=== PATIENT | male | born 1950 | race Caucasian/White ===

== ENCOUNTER → 2024-08-25 | Outpatient (CLI) | payer MEDICARE, SELFPAY ==
[2024-08-25 09:44] LABS: Basophils % (Auto) 1 % (0-2.5); Eosinophils # (Auto) 0.1 Thou/mm3 (0.0-0.5); Eosinophils % (Auto) 2 % (0-10); Hematocrit 41.7 % (41.0-53.0); Hemoglobin 13.8 g/dL (13.5-16.0); Immature Granulocytes % (Auto) 0 % (0-0); Immature Granulocytes Auto 0.01 Thou/mm3 (0.00-0.00); Lymphocytes # (Auto) 1.4 Thou/mm3 (1.0-4.8); Lymphocytes % (Auto) 32 % (10-50); Mean Corpuscular HGB Conc 33.1 g/dl (31.0-37.0); Mean Corpuscular Hemoglobin 30.3 pg (25.0-35.0); Mean Corpuscular Volume 91 fL (80-100); Monocytes # (Auto) 0.4 Thou/mm3 (0.0-0.8); Monocytes % (Auto) 8 % (0-12); Neutrophils # (Auto) 2.4 Thou/mm3 (1.8-7.7); Neutrophils % (Auto) 57 % (37-80); Nucleated Red Blood Cell % 0 /100 WBC (0); Platelet Count 194 Thou/mm3 (140-440); RDW Standard Deviation 40.7 fL (35.1-43.9); Red Blood Count 4.56 Miln/mm3 (4.50-5.90); White Blood Count 4.3 Thou/mm3 (3.8-10.6)
[2024-08-25 09:55] LABS: Prostate Specific Antigen < 0.10 ng/mL (0-4.00)
[2024-08-25 10:00] LABS: Alanine Aminotransferase 38 U/L (10-49); Albumin, Serum 4.8 gm/dL (3.4-4.8); Albumin/Globulin Ratio 2.4 (1.2-2.2); Alkaline Phosphatase 107 U/L (46-116); Anion Gap 8 (7-16); Aspartate Amino Transferase 29 U/L (0-34); BUN/Creatinine Ratio 19 Ratio (12-20); Bilirubin,Total 1.1 mg/dL (0.3-1.2); Blood Urea Nitrogen 17 mg/dL (9-23); Calcium 10.2 mg/dL (8.3-10.6); Calcium (Corrected) 10.2 mg/dL (8.5-10.1); Carbon Dioxide 25.5 mMol/L (20.0-31.0); Chloride 106 mMol/L (98-107); Creatinine (Component) 0.9 mg/dL (0.6-1.3); Glucose 97 mg/dL (74-106); Osmolality,Calculated 279 (275-295); Potassium 4.2 mMol/L (3.4-5.1); Sodium 139 mMol/L (136-145); Total Protein 6.8 gm/dL (5.7-8.2); eGFR > 60 See Note
== END | disposition home or self-care (01) ==
LOC: COPL 08:16
PROVIDERS: PCP Internal Medicine; Referring Provider Urology; Visit Provider Urology
DX: N40.1 Benign prostatic hyperplasia with lower urinary tract symptoms (principal); N32.81 Overactive bladder; C61 Malignant neoplasm of prostate
CPT/HCPCS: 36415; 80053; 84153; 85025

== ENCOUNTER 2024-08-29 06:57 | Emergency (ER) | payer MEDICARE, SELFPAY ==
[2024-08-29 06:58] VITALS: BMI 32.1
[2024-08-29 07:10] VITALS: BP 120/75; PULSE 64; RESP 19; TEMP 36.4; O2SAT 100
--- NOTE | 2024-08-29 07:12 | EKG_ITS ---
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
--- NOTE | 2024-08-29 07:26 | XR_ITS ---
Examination: PA lateral chest 2 views Technique: Upright PA lateral chest 2 views Exam date and time: August 20, 2024 at 0733 hrs. Indications: Onset chest pain today, history myocardial infarction 3 years ago Findings: Normal heart size Lungs are clear. Moderate thoracic spondylosis Impression: No active disease
--- NOTE | 2024-08-29 07:26 | PD.EDRME ---
Rapid Medical Screening Exam RME Arrival date/time: 08/29/24 06:57 Chief Complaint: Chest Pain Time Seen by Provider: 08/29/24 07:03 Vital signs: Vital Signs Temperature 97.6 F 08/29/24 07:10 Pulse Rate 64 08/29/24 07:10 Respiratory Rate 19 08/29/24 07:10 Blood Pressure 120/75 08/29/24 07:10 Pulse Oximetry (%) 100 08/29/24 07:10 Oxygen Delivery Method Room Air 08/29/24 07:10 Vital signs reviewed by provider: Yes RME Narrative: 73-year-old male past medical history of CAD (HI x 3 years ago) presents for evaluation of intermittent, substernal, sharp chest pain x 45 minutes.
[2024-08-29 08:15] LABS: Collection Type, Urine Clean Catch
--- NOTE | 2024-08-29 08:25 | EDNOTE_ITS ---
ED Chest Pain RME/HPI General Chief Complaint: Chest Pain Stated Complaint: CHEST PAIN X 30MINS Time Seen by Provider: 08/29/24 07:03 Arrival date/time: 08/29/24 06:57 Limitations: no limitations RME / HPI RME / HPI narrative: 73-year-old male past medical history of CAD (ID x 3 years ago) presents for evaluation of intermittent, substernal, sharp chest pain x [address] 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 States pain is located most to the left side and points to spot that is about the size of a finger nail on the left sternal border of chest. Described as sharp that is waxing and waning. No other associated symptoms reported. Denies fevers, chills, cough, shortness of breath, sweats, abdominal pain, n/v/d, or urinary symptoms. Related Data Home Medications ?Medication ?Instructions ?Recorded ?Confirmed clopidogrel 75 mg tablet (Plavix) 75 mg PO QDAY 09/19/18 09/19/18 finasteride 5 mg tablet 5 mg PO QDAY 09/19/18 09/19/18 lamotrigine 200 mg tablet 200 mg PO BID 09/19/18 09/19/18 levetiracetam 500 mg tablet 500 mg PO BID 09/19/18 09/19/18 Previous Rx's ?Medication ?Instructions ?Recorded hydrocodone 5 mg-acetaminophen 325 1 tab PO Q6H PRN pain #12 tabs 09/10/21 mg tablet meloxicam 15 mg tablet 15 mg PO QDAY #30 tabs 09/10/21 Allergies Allergy/AdvReac Type Severity Reaction Status Date / Time No Known Allergies Allergy Verified 02/14/22 15:59 Review of Systems Review of Systems Systems Reviewed: All systems reviewed, normal except as documented Past Medical History Past Medical History NEUROLOGIC: Positive Neurological Disorders and Seizures (LAST SEIZURE 09/19/18) CARDIAC: Positive Myocardial Infarction RESPIRATORY: Positive Asthma (uses cpap at night) GENITOURINARY: Positive Genitourinary Disorders and Benign Prostatic Hyperplasia PSYCHO/SOCIAL: Positive Depression OTHER HISTORY: Positive Falls (SEIZURE), Chicken Pox, Measles and Mumps Family History FAMILY HISTORY: Positive Family Psychiatric Problems (SISTER/DEPRESSION) Surgical History SURGICAL: Positive Coronary Stent Social History SMOKING STATUS: Never smoker SUBSTANCE USE: does not use ED Exam General Limitations: Present no limitations General appearance: Present alert and in no apparent distress Head Head exam: Present atraumatic, normocephalic and normal inspection Eye Eye exam: Present normal appearance, PERRL and EOMI ENT ENT exam: Present normal exam, normal oropharynx and mucous membranes moist Neck Neck exam: Present normal inspection, full ROM and trachea midline Chest Chest inspection: Present symmetric chest wall rise and tenderness (Pain is reproducible on exam ) Respiratory Respiratory exam: Present normal lung sounds bilaterally Cardiovascular Cardiovascular exam: Present regular rate, normal rhythm and normal heart sounds Abdominal Exam Abdominal exam: Present soft and normal bowel sounds Extremities Exam Extremities exam: Present normal inspection and full ROM Back Exam Back exam: Present normal inspection and full ROM Neurological Exam Neurological exam: Present alert, oriented X3 and CN II-XII intact Psychiatric Psychiatric exam: Present normal affect and normal mood Skin Skin exam: Present warm, dry, intact and normal color Course Course Course Narrative: chest xray ordered to help determine etiology of chest pain. Quality Measures none Orders Category Date Time Status EKG (ED ONLY) *Do not use* NOW Care 08/29/24 07:12 Completed EKG (ED ONLY) *Do not use* NOW Care 08/29/24 07:26 Completed EKG (ED Only) Stat Exams 08/29/24 07:12 Draft EKG (ED Only) Stat Exams 08/29/24 07:26 Ordered XR chest 2V Stat Exams 08/29/24 07:26 Completed B-Type Natriuretic Peptide Stat Lab 08/29/24 07:58 Completed CBC Stat Lab 08/29/24 07:58 Completed Comprehensive Metabolic Panel Stat Lab 08/29/24 07:58 Completed Drug Screen,Urine Stat Lab 08/29/24 07:40 Completed Magnesium Stat Lab 08/29/24 07:58 Completed Partial Thromboplastin Time Stat Lab 08/29/24 07:58 Completed Prothrombin Time with INR Stat Lab 08/29/24 07:58 Completed Troponin I Stat Lab 08/29/24 07:58 Completed Urinalysis Stat Lab 08/29/24 07:40 Completed Reevaluation(s) Reevaluation #1: Patient remains clinically stable throughout the emergency department visit. We reviewed all the results, analysis, and treatment plans. Patient is amenable to discharge. Strict return precautions were outlined. Patient was discharged in stable condition. Time: 08:53 Vital Signs Vital signs: Vital Signs Temperature 97.6 F 08/29/24 07:10 Pulse Rate 64 08/29/24 07:10 Respiratory Rate 19 08/29/24 07:10 Blood Pressure 120/75 08/29/24 07:10 Pulse Oximetry (%) 100 08/29/24 07:10 Oxygen Delivery Method Room Air 08/29/24 07:10 Pulse ox is 100% on room air which is adequate. Chest Pain MDM Narrative MDM Narrative:: Susu Patton am scribing for and in the presence of Dr. Ortez. Patient data External records reviewed:: [facility] previous records (I reviewed ED visit on 02/15/2022 ) Clinical information provided by:: patient Social determinants that could affect healthcare access:: none Patient has the following chronic illnesses:: ID, CAD s/p stent How is presenting disease/condition affected by chronic disease/condition?: exacerbated by Evaluation data The following diagnostics were reviewed and interpreted by me:: lab results, radiology exam(s) and EKG tracing(s) (Sinus rhythm, rate 64, no acute ST or T- wave changes, no STEMI. ) Lab and/or radiology exams considered but not ordered:: None Interpretation Summary: Ordering Physician: Sina Cruz PA-C Date of Service: 08/29/24 Procedure(s): XR chest 2V Accession Number(s): [id number] cc: Sina Cruz PA-C; Keith Ramsey MD; Stephen Woo MD~ Examination: PA lateral chest 2 views Technique: Upright PA lateral chest 2 views Exam date and time: August 20, 2024 at 0733 hrs. Indications: Onset chest pain today, history myocardial infarction 3 years ago Findings: Normal heart size Lungs are clear. Moderate thoracic spondylosis Impression: No active disease Dictated By: Stephen Woo MD Signed By: <Electronically signed by Stephen Woo MD in OV> 08/29/24 1016 Medications / Prescriptions Medications or Prescriptions considered but not ordered:: None Medication administrations:: None Consultations Consultation(s) initiated? (list below): No Diagnosis Chest Pain Differential Diagnosis: stable angina, atypical chest pain, st elevation myocardial infarction, costochondritis and chest pain (Musculoskeletal pain ) Most likely diagnosis given after review of the tests above:: Costochondritis Admission Indicated Admission indicated?: not indicated Admission Request Was there a request for admission?: No Disposition Plan Disposition Plan: Discharge Discharge Attestation Discharge Attestation: The patient and all family members were given an opportunity to ask questions and understood the discharge instructions. Discharge instructions specifically effects, indications for sooner follow up or return to the emergency department, and the expected course of current diagnosis. Patient condition: Stable Discharge Plan Plan Patient Disposition: HOME (Self Care) Patient condition on transfer: Stable Prescriptions/Referrals Prescriptions/Med Rec: No Action hydrocodone-acetaminophen 5-325 mg tablet 1 tab PO Q6H MDD 4 PRN (Reason: pain) Qty: 12 0RF meloxicam 15 mg tablet 15 mg PO QDAY Qty: 30 0RF lamotrigine 200 mg Tablet 200 mg PO BID levetiracetam 500 mg Tablet 500 mg PO BID clopidogrel [Plavix] 75 mg Tablet 75 mg PO QDAY finasteride 5 mg Tablet 5 mg PO QDAY Referrals: Keith Ramsey MD [Primary Care Provider] - In 1 week Problem List Clinical Impression: Costalchondritis Patient/Caregiver Discharge Instructions Discharge Activity: activity as tolerated Education Materials: ED Chest Wall Pain, Costochondritis Print Language: Samoan Stand Alone Forms: Zoë Award Info., Patient Portal Info Letter
[2024-08-29 08:26] LABS: Basophils % (Auto) 1 % (0-2.5); Eosinophils # (Auto) 0.1 Thou/mm3 (0.0-0.5); Eosinophils % (Auto) 2 % (0-10); Hematocrit 40.3 % (41.0-53.0); Hemoglobin 13.4 g/dL (13.5-16.0); Immature Granulocytes % (Auto) 0 % (0-0); Immature Granulocytes Auto 0.01 Thou/mm3 (0.00-0.00); Lymphocytes # (Auto) 1.6 Thou/mm3 (1.0-4.8); Lymphocytes % (Auto) 36 % (10-50); Mean Corpuscular HGB Conc 33.3 g/dl (31.0-37.0); Mean Corpuscular Hemoglobin 30.7 pg (25.0-35.0); Mean Corpuscular Volume 92 fL (80-100); Monocytes # (Auto) 0.4 Thou/mm3 (0.0-0.8); Monocytes % (Auto) 8 % (0-12); Neutrophils # (Auto) 2.3 Thou/mm3 (1.8-7.7); Neutrophils % (Auto) 53 % (37-80); Nucleated Red Blood Cell % 0 /100 WBC (0); Platelet Count 195 Thou/mm3 (140-440); RDW Standard Deviation 41.1 fL (35.1-43.9); Red Blood Count 4.36 Miln/mm3 (4.50-5.90); White Blood Count 4.4 Thou/mm3 (3.8-10.6)
[2024-08-29 08:29] LABS: Amphetamine/Methamp Scrn,U Negative (Negative); Barbiturate Screen,Urine Negative (Negative); Benzodiazepines Screen,Urine Negative (Negative); Benzoylecgonine Screen, Ur Negative (Negative); Fentanyl Screen,Urine Negative (Negative); Opiate Screen,Urine Negative (Negative); THC Screen,Urine Negative (Negative)
[2024-08-29 08:34] LABS: Partial Thromboplastin Time 25.5 Seconds (22.0-36.0); Prothrombin Time 11.3 Seconds (9.0-12.2)
[2024-08-29 08:36] LABS: B-Type Natriuretic Peptide 51 pg/mL (0-100)
[2024-08-29 08:44] LABS: Alanine Aminotransferase 39 U/L (10-49); Albumin, Serum 4.4 gm/dL (3.4-4.8); Albumin/Globulin Ratio 1.8 (1.2-2.2); Alkaline Phosphatase 88 U/L (46-116); Anion Gap 7 (7-16); Aspartate Amino Transferase 43 U/L (0-34); BUN/Creatinine Ratio 15 Ratio (12-20); Bilirubin,Total 0.6 mg/dL (0.3-1.2); Blood Urea Nitrogen 12 mg/dL (9-23); Carbon Dioxide 25.5 mMol/L (20.0-31.0); Chloride 105 mMol/L (98-107); Creatinine (Component) 0.8 mg/dL (0.6-1.3); Estimated Creatinine Clearance 111.8 mL/min (>60); Globulin 2.5 gm/dL (2.3-3.5); Glucose 93 mg/dL (74-106); Magnesium 2.2 mg/dL (1.6-2.6); Osmolality,Calculated 273 (275-295); Potassium 4.6 mMol/L (3.4-5.1); Sodium 137 mMol/L (136-145); Total Protein 6.9 gm/dL (5.7-8.2); Troponin I < 0.020 ng/mL (0.0-0.045); eGFR > 60 See Note
[2024-08-29 08:46] LABS: Bilirubin,Urine Negative (Negative); Blood,Urine Negative (Negative); Clarity,Urine Clear (Clear/Hazy); Color,Urine Lt-Yellow (Lt Yel-Yel); Glucose, Urine Negative (Negative); Ketones,Urine Negative (Negative); Leukocyte Esterase,Urine Negative (Negative); Nitrite,Urine Negative (Negative); PH,Urine 7.5 (5.0-7.0); Protein,Urine Negative (Neg - Trace); RBC,Urine 1 /hpf (0-3); Specific Gravity,Urine 1.009 (1.001-1.035); Squamous Epithelial Cell,Urine < 1 /hpf (0-5); Urobilinogen,Urine Negative mg/dL (0.0-1.0); WBC,Urine 1 /hpf (0-5)
--- NOTE | 2024-08-29 08:50 | PC.NURSE ---
PT CAME IN WITH C/O PAIN TO LEFT SIDE CHEST. PT STATES PAIN IS NON RADIATING AND FEELS LIKE A SPASM. NO N/V REPORTED. EKG WAS DONE ON ARRIVAL AND SHOWN TO ER DOCTOR. PT IS NORMAL SINUS RHYTHM ON NURSE TRANSPLANT .
[2024-08-29 08:55] VITALS: BP 124/70; PULSE 58; RESP 20; TEMP 36.4; O2SAT 100
== END 2024-08-29 09:09 | disposition home or self-care (01) ==
PROVIDERS: Physician Assistant; Emergency Provider Emergency Medicine; PCP Internal Medicine
DX: M94.0 Chondrocostal junction syndrome [Tietze] (principal); I45.10 Unspecified right bundle-branch block; I25.2 Old myocardial infarction; I25.10 Atherosclerotic heart disease of native coronary artery without angina pectoris; Z95.5 Presence of coronary angioplasty implant and graft
CPT/HCPCS: 36415; 71046; 80053; 80307; 81001; 83735; 83880; 84484; 85025; 85610; 85730; 93005; 99283

== ENCOUNTER → 2025-03-31 | Outpatient (CLI) | payer MEDICARE, SELFPAY ==
[2025-03-31 11:58] LABS: Basophils # (Auto) 0.0 Thou/mm3 (0.0-0.2); Basophils % (Auto) 1 % (0-2.5); Eosinophils # (Auto) 0.1 Thou/mm3 (0.0-0.5); Eosinophils % (Auto) 1 % (0-10); Hematocrit 39.6 % (41.0-53.0); Hemoglobin 13.4 g/dL (13.5-16.0); Immature Granulocytes Auto 0.01 Thou/mm3 (0.00-0.00); Lymphocytes # (Auto) 1.9 Thou/mm3 (1.0-4.8); Lymphocytes % (Auto) 34 % (10-50); Mean Corpuscular HGB Conc 33.8 g/dl (31.0-37.0); Mean Corpuscular Hemoglobin 30.0 pg (25.0-35.0); Mean Corpuscular Volume 89 fL (80-100); Monocytes # (Auto) 0.5 Thou/mm3 (0.0-0.8); Monocytes % (Auto) 9 % (0-12); Neutrophils # (Auto) 3.0 Thou/mm3 (1.8-7.7); Neutrophils % (Auto) 55 % (37-80); Nucleated Red Blood Cell # 0.00 Thou/mm3 (0.00-0.00); Nucleated Red Blood Cell % 0 /100 WBC (0); Platelet Count 175 Thou/mm3 (140-440); RDW Standard Deviation 42.6 fL (35.1-43.9); Red Blood Count 4.47 Miln/mm3 (4.50-5.90); White Blood Count 5.4 Thou/mm3 (3.8-10.6)
[2025-03-31 12:08] LABS: Prostate Specific Antigen < 0.10 ng/mL (0-4.00)
[2025-03-31 12:12] LABS: Alanine Aminotransferase 31 U/L (10-49); Albumin, Serum 4.3 gm/dL (3.4-4.8); Albumin/Globulin Ratio 2.0 (1.2-2.2); Alkaline Phosphatase 86 U/L (46-116); Anion Gap 7 (7-16); Aspartate Amino Transferase 36 U/L (0-34); BUN/Creatinine Ratio 16 Ratio (12-20); Bilirubin,Total 0.8 mg/dL (0.3-1.2); Blood Urea Nitrogen 14 mg/dL (9-23); Calcium 9.4 mg/dL (8.3-10.6); Calcium (Corrected) 9.4 mg/dL (8.5-10.1); Carbon Dioxide 24.6 mMol/L (20.0-31.0); Chloride 108 mMol/L (98-107); Creatinine (Component) 0.9 mg/dL (0.6-1.3); Globulin 2.1 gm/dL (2.3-3.5); Glucose 89 mg/dL (74-106); Osmolality,Calculated 278 (275-295); Potassium 4.1 mMol/L (3.4-5.1); Sodium 140 mMol/L (136-145); Total Protein 6.4 gm/dL (5.7-8.2); eGFR > 60 See Note
[2025-04-07 06:41] LABS: Testosterone,Total* 81 ng/dL (250-1100)
== END | disposition home or self-care (01) ==
LOC: COPL 10:55
PROVIDERS: PCP Internal Medicine; Referring Provider Urology; Visit Provider Urology
DX: N40.1 Benign prostatic hyperplasia with lower urinary tract symptoms (principal); R97.20 Elevated prostate specific antigen [PSA]
CPT/HCPCS: 36415; 80053; 84153; 84403; 85025

== ENCOUNTER → 2025-07-27 | Outpatient (CLI) | payer MEDICARE, SELFPAY ==
[2025-07-27 07:15] LABS: Misc Send Out* See Sep Rpt
[2025-07-27 09:13] LABS: Basophils # (Auto) 0.0 Thou/mm3 (0.0-0.2); Basophils % (Auto) 1 % (0-2.5); Eosinophils # (Auto) 0.1 Thou/mm3 (0.0-0.5); Eosinophils % (Auto) 2 % (0-10); Hematocrit 36.8 % (41.0-53.0); Hemoglobin 12.0 g/dL (13.5-16.0); Immature Granulocytes Auto 0.02 Thou/mm3 (0.00-0.00); Lymphocytes # (Auto) 1.5 Thou/mm3 (1.0-4.8); Lymphocytes % (Auto) 30 % (10-50); Mean Corpuscular HGB Conc 32.6 g/dl (31.0-37.0); Mean Corpuscular Hemoglobin 30.5 pg (25.0-35.0); Mean Corpuscular Volume 93 fL (80-100); Monocytes # (Auto) 0.4 Thou/mm3 (0.0-0.8); Monocytes % (Auto) 8 % (0-12); Neutrophils # (Auto) 2.9 Thou/mm3 (1.8-7.7); Neutrophils % (Auto) 59 % (37-80); Nucleated Red Blood Cell # 0.00 Thou/mm3 (0.00-0.00); Nucleated Red Blood Cell % 0 /100 WBC (0); Platelet Count 190 Thou/mm3 (140-440); RDW Standard Deviation 44.8 fL (35.1-43.9); Red Blood Count 3.94 Miln/mm3 (4.50-5.90); White Blood Count 5.0 Thou/mm3 (3.8-10.6)
[2025-07-27 09:18] LABS: Prostate Specific Antigen < 0.10 ng/mL (0-4.00)
[2025-07-27 09:24] LABS: Vitamin B12 679 pg/mL (211-911); Vitamin D 25 Hydroxy Total 29.9 ng/mL (7.3-40.2)
[2025-07-27 09:25] LABS: Alanine Aminotransferase 38 U/L (10-49); Albumin, Serum 4.1 gm/dL (3.4-4.8); Albumin/Globulin Ratio 2.7 (1.2-2.2); Alkaline Phosphatase 65 U/L (46-116); Anion Gap 10 (7-16); Aspartate Amino Transferase 31 U/L (0-34); BUN/Creatinine Ratio 20 Ratio (12-20); Bilirubin,Total 0.5 mg/dL (0.3-1.2); Blood Urea Nitrogen 16 mg/dL (9-23); Calcium 8.7 mg/dL (8.3-10.6); Calcium (Corrected) 8.7 mg/dL (8.5-10.1); Carbon Dioxide 24.0 mMol/L (20.0-31.0); Cardiac Risk Estimate 2.6 RATIO (4.0-6.7); Chloride 111 mMol/L (98-107); Cholesterol 143 mg/dL (132-200); Creatinine (Component) 0.8 mg/dL (0.6-1.3); Free T4 (Free Thyroxine) 1.27 ng/dL (0.89-1.76); Globulin 1.5 gm/dL (2.3-3.5); Glucose 103 mg/dL (74-106); HDL Cholesterol 56 mg/dL (40-60); LDL Cholesterol,Calculated 72 mg/dL (0-130); Osmolality,Calculated 289 (275-295); Potassium 4.0 mMol/L (3.4-5.1); Sodium 145 mMol/L (136-145); Thyroid Stimulating Hormone 1.94 uIU/mL (0.55-4.78); Total Protein 5.6 gm/dL (5.7-8.2); Triglycerides 75 mg/dL (30-150); eGFR > 60 See Note
[2025-07-27 09:31] LABS: Glucose Estimated Average 111 mg/dL (80-131); Hemoglobin A1C 5.5 % Hgb (4.8-6.0)
== END | disposition home or self-care (01) ==
LOC: COPL 06:48
PROVIDERS: PCP Internal Medicine; Referring Provider Internal Medicine; Visit Provider Internal Medicine
DX: G40.909 Epilepsy, unspecified, not intractable, without status epilepticus (principal); E11.9 Type 2 diabetes mellitus without complications; N40.1 Benign prostatic hyperplasia with lower urinary tract symptoms; E55.9 Vitamin D deficiency, unspecified; E78.2 Mixed hyperlipidemia; E03.9 Hypothyroidism, unspecified
CPT/HCPCS: 36415; 80053; 80061; 82306; 82607; 83036; 84153; 84439; 84443; 85025

== ENCOUNTER → 2025-08-25 | Outpatient (CLI) | payer MEDICARE, SELFPAY ==
--- NOTE | 2025-08-25 09:00 | XR_ITS ---
Examination: MRI of brain without intravenous contrast. MRI brain with intravenous contrast. Date and time of exam: August 25, 2025, 1006 hours INDICATIONS: Seizures beginning 2009, the last seizure July 11, 2025 Technique: Multiple axial and sagittal images of the brain to been obtained. Siemens high-resolution 1.52 [place] short bore scanner utilized. Sagittal sections, T1 weighted images, TR 500, TE 14, are performed. Axial sections proton-density and T2-weighted images have been obtained. Inversion recovery axial images, TR 9260, TE 111, TR 2500. Diffusion weighted images, axial sections, TR 4800, TE 128, B value 1000. Axial sections, ADC map, TR 4800, TE 128. Axial and coronal images were also obtained post 20 cc gadolinium administered intravenously. Findings:: Enlargement of the sella turcica is not present. The optic chiasm and infundibular stalk are not remarkable. There is no localized enlargement of the medulla or mumtaz. Fourth ventricle and cerebellar tonsils appear normal in position. No subacute area of hemorrhage density is seen. Fourth ventricle is midline. Mass in the cerebellopontine angle region is not evident. 7th and 8th nerve complexes exhibit symmetry Globes are symmetrical Orbital musculature including medial lateral rectus muscles do not exhibit abnormality Increased white matter signal is moderate Effacement of the cortical sulcal markings is not identified. Mass effect upon the ventricular system is not identified. Diffusion-weighted images demonstrate no focus of restricted diffusion Contrast images demonstrate no abnormal enhancement Impression: Negative for acute hemorrhage mass effect or midline shift No acute infarct Moderate chronic microvascular white matter change
== END | disposition home or self-care (01) ==
PROVIDERS: PCP Internal Medicine; Referring Provider Psychiatry & Neurology Neurology; Visit Provider Psychiatry & Neurology Neurology
DX: R90.82 White matter disease, unspecified (principal)
CPT/HCPCS: 70553; A9577

== ENCOUNTER 2025-09-17 10:08 | Day surgery (SDC) | payer MEDICARE, SELFPAY ==
--- NOTE | 2025-09-16 07:00 | EKG_ITS ---
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
[2025-09-16 08:33] LABS: Anion Gap 10 (7-16); BUN/Creatinine Ratio 15 Ratio (12-20); Blood Urea Nitrogen 12 mg/dL (9-23); Calcium 9.2 mg/dL (8.3-10.6); Carbon Dioxide 24.6 mMol/L (20.0-31.0); Chloride 110 mMol/L (98-107); Creatinine (Component) 0.8 mg/dL (0.6-1.3); Glucose 96 mg/dL (74-106); Osmolality,Calculated 288 (275-295); Potassium 4.2 mMol/L (3.4-5.1); Sodium 145 mMol/L (136-145); eGFR > 60 See Note
[2025-09-16 08:34] LABS: Basophils # (Auto) 0.1 Thou/mm3 (0.0-0.2); Basophils % (Auto) 1 % (0-2.5); Eosinophils # (Auto) 0.1 Thou/mm3 (0.0-0.5); Eosinophils % (Auto) 2 % (0-10); Hematocrit 40.1 % (41.0-53.0); Hemoglobin 13.0 g/dL (13.5-16.0); Immature Granulocytes Auto 0.02 Thou/mm3 (0.00-0.00); Lymphocytes # (Auto) 1.6 Thou/mm3 (1.0-4.8); Lymphocytes % (Auto) 27 % (10-50); Mean Corpuscular HGB Conc 32.4 g/dl (31.0-37.0); Mean Corpuscular Hemoglobin 29.7 pg (25.0-35.0); Mean Corpuscular Volume 92 fL (80-100); Monocytes # (Auto) 0.4 Thou/mm3 (0.0-0.8); Monocytes % (Auto) 7 % (0-12); Neutrophils # (Auto) 3.8 Thou/mm3 (1.8-7.7); Neutrophils % (Auto) 63 % (37-80); Nucleated Red Blood Cell # 0.00 Thou/mm3 (0.00-0.00); Nucleated Red Blood Cell % 0 /100 WBC (0); Platelet Count 177 Thou/mm3 (140-440); RDW Standard Deviation 42.5 fL (35.1-43.9); Red Blood Count 4.38 Miln/mm3 (4.50-5.90); White Blood Count 6.0 Thou/mm3 (3.8-10.6)
[2025-09-16 08:35] LABS: INR 1.0 (0.9-1.3); Partial Thromboplastin Time 24.8 Seconds (22.0-36.0); Prothrombin Time 10.9 Seconds (9.0-12.2)
[2025-09-17] VITALS (11 sets, daily range): BP systolic 118–150; BP diastolic 66–97; PULSE 66–89; RESP 12–20; TEMP 36.7–36.9; O2SAT 97–100
--- NOTE | 2025-09-17 11:30 | ECHO_ITS ---
Patient Info Name: Jeff Mancilla Age: 74 yrs Admit Date: 09/17/2025 Exam Date: 09/17/2025 11:54 AM Patient Status: O Site: [facility] Ht: 188 cm Wt: 112 kg BSA: 2.45 m2 Gender: Male : 1950 Exam Type: CCL heart cath LT ventricle Referring Physician(s): Nataliia Rahman Procedure Staff Name: Nataliia Rahman Title: Role: Cna Pct Name: Lorrie Montoya Title: Jason Role: Monitor Name: Willie Burdick Title: Quincy Gomez Role: Scrub Name: Taylor Lovelace Title: RN Role: Printing Grey Cloth Tender Name: Manjula De Leon Title: RN Role: Sedation Nurse Procedure(s) Code: 37789016 Description: CONSCIOUS SEDATION INITIAL Code: 38344383 Description: ACT ACTIVATED CLOTTING TIME Code: [id number] Description: ILLIO/FEMORAL GRAM Code: [id number] Description: [facility] W/VENTRICULOGRAM/PTCA Code: [id number] Description: DRUG ELUTING STENT Code: 43254617 Description: CONSCIOUS SEDATION ADDITIONAL Exam Priority: R Cath Hemodynamic Data Pressures Phase:Baseline AO : 174 mmHg/81 mmHg(120 mmHg) @ 12:12:54 PM 138 mmHg/71 mmHg(104 mmHg) @ 12:31:46 PM LV : 177 mmHg/15 mmHg/33 mmHg @ 12:12:30 PM 163 mmHg/2 mmHg/21 mmHg @ 12:12:46 PM 160 mmHg/2 mmHg/18 mmHg @ 12:12:47 PM AO HR: 68 bpm @ 12:12:54 PM 71 bpm @ 12:31:46 PM LV HR: 66 bpm @ 12:12:30 PM 65 bpm @ 12::46 PM 50 bpm @ 12:12:47 PM LV DP/DT: 1,158 mmHg/s @ 12:12:30 PM 1,110 mmHg/s @ 12:12:46 PM 1,158 mmHg/s @ 12:12:47 PM Procedural Details Infusor 500ml pressure bag administered. 500ml NS with 2500 units Heparin administered. 1000 ml NS with 5000 units Heparin administered. No Known Drug Allergies. Patient prepped and draped in usual sterile technique. Time out taken. Patient identity and surgery site confirmed. Fire risk assessment and proper safety precautions in place. Medication verified by sedation nurse with circulating nurse. 1% Lidocaine Administered To Rt Groin. 4F Stiffen Micro Puncture. .[id number] Amplatz Extra Stiff Wire .[id number]. Percutaneous Puncture To RFA. 5fr x 10cm Sheath / [place] sheath inserted into RFA. Guidewire Removed. Guidewire/ 0.035/ 260cm/ 3mm J (Exchange). Guidewire Inserted. FL4 Catheter Inserted By Guidewire. Guidewire Removed. Guidewire Inserted. Catheter Removed. FR4 Catheter Inserted By Guidewire. Guidewire Removed. LV Gram Performed. Pullback from LV to AO. Snapshot: Pullback from LV to AO. Catheter Repositioned. Right Coronary System Injected and Multiple Views Taken. Guidewire Inserted. Catheter Removed. Heparin IV 8,000 units. Essential Kit. Indeflator 20/30 [place]. Guardian Hemo Valve. 6fr x 10cm Sheath / [place]. Sheath Exchange to 6fr. 6 FR JL 4 Launcher Guide Catheter. Guide Catheter Inserted. Guidewire removed. Runthrough NS. Interventional Guidewire Inserted. 2.00 x 12mm Euphora Balloon. ACT: (Reference Range 89-169 seconds)= 331. Runthrough NS. 2nd Interventional Guidewire Inserted. Coronary Artery Visualized. Balloon Catheter Inserted. Balloon inflated for 19 sec @ 12 lupe in the LPL 1. Balloon inflated for 18 sec @ 14 lupe in the LPL1. Balloon Catheter Removed. Post Injection Of Coronaries. Balloon Catheter Inserted. Balloon inflated for 1 sec @ 10 lupe in the LPL2. Balloon inflated for 14 sec @ 8 lupe in the LPL2. Balloon inflated for 66 sec @ 8 lupe in the LPL2. Balloon Catheter Removed. Post Injection Of Coronaries. 2.25 x 15 mm Norman Hoke Rx Stent. Stent Catheter inserted. Stent deployed for 10 sec @ 10 lupe in the LPL1. Stent deployed for 9 sec @ 6 lupe in the LPL1. Stent deployed for 9 sec @ 14 lupe in the LPL1. Stent Deployment System Removed. Post Injection Of Coronaries. Interventional wire removed. Balloon Catheter Inserted. 2.75mm x 08mm Balloon. Balloon inflated for 12 sec @ 8 lupe in the LPL1. Balloon inflated for 12 sec @ 12 lupe in the LPL1. Balloon Catheter Removed. Injection Of Iliac For Possible Closure Device. Catheter and 2nd Interventional wire Removed. Sheath Pulled & Pressure Applied with Closure Device. Angio Seal 6fr. Closure Device Deployed. HEMOSTASIS Obtained. Sterile Dressing Applied To Site. Post Procedure Teaching Performed. Patient Verbalizes Understanding Of Teaching. Patient Transferred to Cardiac Head Kiln Operator Recovery. X-ray Summary Total Time (min): 0.00 Interventional Time (min): --- Diagnostic Time (min): --- Total Dose (mGy): --- Air Kerma (mGy): --- DAP (cGy*cm2): --- Contrast Contrast: ISOVUE 370 Amount (mL): 88 ml Report Signatures Interventional Finalized by Nataliia Rahman on 09/19/2025 05:30 PM Diagnostic Finalized by Nataliia Rahman on 09/19/2025 05:30 PM
--- NOTE | 2025-09-17 13:47 | PC.NURSE ---
took over patient care at 1344. hand off report given to me by ana cristobal
[2025-09-18 10:07] LABS: ACT (CATH LAB ONLY) 331.0 Seconds (89-169)
--- NOTE | 2025-09-19 17:57 | ESOP_ITS ---
RE: MANDA MEADOWS : 1950 DATE OF OPERATION: 09/17/2025 PROCEDURES PERFORMED: 1. Diagnostic left heart catheterization, selective coronary angiogram, left ventricular angiogram, CPT 22830. 2. Percutaneous coronary intervention and percutaneous transluminal coronary angioplasty stent placement of the left circumflex artery posterolateral branch with placement of a drug-eluting stent 2.25 x 15 mm Karlos Medtronic drug-eluting stent placement, CPT 87467. 3. Additional vessel angioplasty of the second posterolateral branch of the circumflex artery with balloon angioplasty, CPT 05724. 4. Ultrasound-guided access, right radial artery. 5. Conscious sedation 1 hour duration. 6. Iliofemoral angiogram. DIAGNOSES: Coronary artery disease and angina pectoris. INDICATIONS FOR THE PROCEDURE: The patient is a 74-year-old male with a past medical history of hypertension, hypercholesterolemia, recurrent angina pectoris, chest pressure, minimal exertion, class 3 angina pectoris. Coronary angiogram and cardiac catheterization recommended to assess the patient is candidate for coronary intervention and revascularization.. PROCEDURE DETAILS: The patient was brought to the cardiac catheterization laboratory. He was given 2 mg Versed and 50 mcg fentanyl for conscious sedation. Right femoral approach was taken because the patient's Ramirez's test failed. Ulnar artery was small hence we went femoral approach. Right femoral artery cannulated with micropuncture technique. A 6-Romanian sheath was introduced. Next, selective right and left coronary angiogram performed with Angelo right and Angelo left 4 catheter and diagnostic procedure subsequently left heart catheterization and LV angiogram performed successfully. Diagnostic procedure showed following finding. Right coronary artery is small and dominant gives a PDA PL branches appear now. Left coronary system: Left main coronary is normal. Left anterior descending artery showed evidence of stent in the proximal mid and left anterior descending artery which is widely patent. There is a first diagonal branch of left anterior descending artery that is in fact jailed in the stent did show evidence of a moderate 60-70% stenosis. Left circumflex artery is large and gives a 1 big large AV groove branch and 1 big large branch which continues and gives 2 posterolateral branches. The first posterolateral branch showed a 99% stenosis. Second posterolateral branch showed an 80-90% stenosis bifurcation lesion. This is a culprit lesion decided to do PCI and angioplasty. Left heart catheterization showed following findings. Left ventricular pressure recorded was 160/10, EDP is 18. Aortic pressure 160/80. No gradient across the aortic valve. Left ventricular angiogram showed evidence of normal left ventricular wall motion, ejection fraction appears to be normal at 60%. Following diagnostic procedure intervention was undertaken. The patient was given IV heparin total of 8,000 units and proceeded with the PCI given the patient was already on aspirin and Plavix. Additional loading dose Plavix was given. A 6-Romanian JL4 guiding catheter used to cannulate left main coronary artery. A 0.014 Runthrough guidewire was used cross the lesion successfully placed in the posterolateral branch number 1. Additional second wire was placed 0.014 in the second posterolateral branch bifurcation. Predilation of both lesions were performed initially by 2.25 x 12 mm balloon. Both lesions are successfully dilated. Prolonged inflation performed. The first posterolateral branch appears to be compromised hence stent placement was placed into the first posterolateral branch. A 2.25 x 15 mm Medtronic Karlos drug-eluting stent placed into the first posterolateral branch. Subsequently, proximal portion was dilated using a 2.75 mm x 8 mm balloon which was used to dilate the proximal portion of the stent successfully. After dilating the proximal portion part balloon angioplasty excellent angiogram results were detected. Final angiogram showed widely patent circumflex artery posterolateral branch, obtuse marginal branch with excellent angiogram results. Widely patent posterolateral branch number 2. Subsequently, Angio-Seal was deployed with good hemostasis that was secured. The patient will be discharged home same day. RECOMMENDATIONS: Continue antiplatelet drug therapy. FINAL SUMMARY: 1. Successful percutaneous coronary intervention and percutaneous transluminal coronary angioplasty stent placement of the posterolateral branch of the circumflex artery, obtuse marginal branch (pre-procedure stenosis 99%, post-procedure stenosis is 0%. SYLVIA flow pre-procedure 1, post-procedure 3). The stent deployed 2.25 x 15 [place]. 2. Successful angioplasty of the posterolateral branch 2 with excellent angiogram results. Pre-procedure stenosis 90%, post-procedure is 0%. SYLVIA flow pre-procedure is 3, post-procedure is 3. COMPLICATIONS: None. ESTIMATED BLOOD LOSS: None. DT: 17:20:50 TT: 17:57:00 Ref: [id number] - TID: [id number] [facility]
== END 2025-09-17 15:36 | disposition home or self-care (01) ==
PROVIDERS: PCP Internal Medicine; Referring Provider Internal Medicine Cardiovascular Disease; Visit Provider Internal Medicine Cardiovascular Disease
PROC: (CPT 93458; principal; 2025-09-17 11:30)
DX: I25.118 Atherosclerotic heart disease of native coronary artery with other forms of angina pectoris (principal); Z01.810 Encounter for preprocedural cardiovascular examination; E78.00 Pure hypercholesterolemia, unspecified; Z95.5 Presence of coronary angioplasty implant and graft; I10 Essential (primary) hypertension
CPT/HCPCS: 93458; C9600; 36415; 80048; 85025; 85347; 85610; 85730; 93005; 99152; 99153; A4649; C1725; C1751; C1760; C1769; C1874; C1887; C1894; J0168; J0461; J1643; J2250; J2312; J2371; J3010; J3490; Q9967; A9270; J2305